=== PATIENT | female | born 1960 | race Caucasian/White ===

== ENCOUNTER 2020-02-01 05:30 | Observation (INO) ==
--- NOTE | 2020-01-17 09:05 | PAT Medication Instructions ---
Medication Instructions Date of Service January 17, 2020 Home Medications black cohosh 540 mg PO BID melatonin 10 mg PO HS STOP taking 2 weeks before surgery (or as soon as possible if surgery is within 2 weeks) black cohosh 540 mg PO BID Take evening before surgery melatonin 10 mg PO HS Other Notes If you have any questions please call us at [phone] or [phone] or [phone] or [phone]
--- NOTE | 2020-01-18 08:46 | Anesthesiology Consultation ---
Date of Service January 18, 2020 Assessment & Plan (1) Encounter for pre-operative examination: Chart Review Chart Review: Acceptable Risk for Surgery and Patient seen in Pre Admission Testing Seen by cardio 01/14/20 for pre op evaluation = History of bradycardia after cataract surgery in 2018 (no strips available for review). Did have w/u with [facility]- showed episodes of SVT (longest lasting 9 beats) and 1 episode of NSVT. No pauses or AV block noted. Exercise ECHO negative for ischemia. " Patient easily gets between 4-10 METS without symptoms of chest pain/dyspnea/syncope. No further cardiac work-up is needed. Would recommend close hemodynamic monitoring intraoperatively and postoperatively actively to monitor for any significant bradycardia/arrhythmias. Today resting heart rate is in the 50s, I had patient walk a short distance and there was an appropriate increase to 75 bpm" *Anesthesia record from 09/01/18 cataract surgery in [facility] [address] included. No mention of bradycardia noted. As above, pt had subsequent work up that was unremarkable and follows routinely with cardio. Teaching & Discussion Pre-Anesthesia Teaching/Discussion Notes: Instructed NPO after midnight before surgery,except medications with 15 cc of water. Medication instructions provided according to the PAT guidelines. History Surgery Operation Date: 02/01/20 07:15 Proposed Procedures p Left Superficial Parotidectomy - Dayton Paulson MD Height/Weight Height: 5 ft 11 in Weight: 92.7 kg Allergies Allergy/AdvReac Type Severity Reaction Status Date / Time No Known Drug Allergies Allergy Verified 01/12/20 11:41 Medications Home Medications Medication Instructions Recorded Confirmed Last Taken black cohosh 540 mg PO BID 01/12/20 01/12/20 Unknown melatonin 10 mg PO HS 01/12/20 01/12/20 Unknown meloxicam 15 mg PO DAILY 01/18/20 01/18/20 Unknown Past Medical History Medical History (Updated 01/19/20 @ 16:26 by Simran Quintana PA-C) Adverse reaction to anesthetic agent Steep drop in heart rate (Aug 2018 for cataract surgery at [facility])- HR in the 20s per patient Arthritis Bradycardia Occasionally- occ dizziness, no syncope Follows with cardio- cardio recommending perioperative and post operative monitoring. No pacer needed at this time History of Lyme disease Per records- 25 years ago- treated with abxs Mass of left parotid gland Stomach ulcer hx- occurred approx 15 years ago- no current issues Exercise / Class Metabolic Activity II 4-5 Yardwork/Stairs/Walk up hill (one flight of stairs - no chest pain and SOB) Past Surgical History Surgical History (Updated 01/12/20 @ 11:47 by Ute Alcala RN) History of appendectomy 1996 History of back surgery L4/L5 ruptured disks, 2007 and 2008 History of bilateral tubal ligation History of cataract surgery R/L removal 08/2018 History of section History of cholecystectomy History of dilatation and curettage History of esophagogastroduodenoscopy (EGD) History of hysterectomy BERTA with unilateral oopherectomy History of removal of cyst From the outer neck area 1967 Past Anesthesia History No Hx of Anesthesia Complications (besides significant bradycardia ) and No Family Hx of Anesthesia Complications History of PONV No Hx of PONV and No Hx of Motion Sickness STOP BANG Total 2 Social History Smoking Status: Former smoker (smoked x 25 years- 3/4 PPD ) tobacco type: cigarettes Do You Dip or Chew Tobacco: No Smoking End Date: ~2009 Hx Alcohol Use: No Hx Substance Use: No substance use type: does not use Review of Systems Reflux - mild and occ- relieved with Tums Patient denies chest pain, shortness of breath, dyspnea on exertion, cough, wheezing, palpitations. No hx of seizures, stroke, MT, apnea/snoring. No hx of blood clots or blood transfusions No recent steroid use Physical Exam Vital Signs VITALS BP119/53 P 54 TEMP 97.6 SP02 97% RESP 18 Constitutional no acute distress ENMT Mouth: no TMJ clicking, no chipped teeth and no loose teeth Thyromental Distance: > or= 3.5 Finger Breadths (3.5) Mallampati Class: II Full upper denture ; missing bottom molars Neck neck extension not limited Respiratory normal respiratory effort; no respiratory distress Auscultation: lungs clear to auscultation bilaterally; no wheezes Cardiovascular Rate/Rhythm: regular rate and regular rhythm Heart Sounds: no murmur Vessels: no carotid bruit Extremities: no edema Musculoskeletal Spine: normal cervical ROM and no pain with cervical ROM Neurologic moves all extremities Psychiatric Orientation: alert Testing Laboratory Results 01/18/20 09:10 01/18/20 09:10 PT 10.6 Seconds (9.0-12.0) 01/18/20 09:10 INR 1.0 (0.9-1.1) 01/18/20 09:10 APTT 28.8 Seconds (21.0-31.0) 01/18/20 09:10 Blood Type O Positive 01/18/20 09:10 Antibody Screen NEGATIVE 01/18/20 09:10 Electrocardiogram Date: 01/14/20 Findings: + SB @ (51) Stress Test Date: 10/16/18 Type: exercise (ECHO) Resting EF: 55-60% Resting LV Function: normal Resting RWMA: + none Valvular Disease: no significant valvular disease Stress ECHO negative for inducible ischemia. MPHR 96%. Frequent PACs and occ PVCs with stress- no sustained arrhythemias. Grade I diastolic dysfunction. Stress EKG showed no evidence of ischemia.
[2020-01-18 10:31] LABS: Basophils # (auto) 0.02 K/uL (0-0.2); Basophils % (auto) 0.3 %; Eosinophils # (auto) 0.26 K/uL (0-0.5); Eosinophils % (auto) 4.2 %; Hematocrit (blood only) 43.5 % (37-47); Hemoglobin 14.2 g/dL (12.0-16.0); Lymphocytes # (auto) 1.79 K/uL (1.2-3.4); Lymphocytes % (auto) 29.2 %; Mean Corpuscular Hemoglobin 31.4 pg (25-34); Mean Corpuscular Hgb Conc 32.6 g/dL (32-36); Mean Corpuscular Volume 96.2 fL (80-100); Mean Platelet Volume 11.4 fL (7.4-10.4); Monocytes # (auto) 0.42 K/uL (0.11-0.59); Monocytes % (auto) 6.9 %; Neutrophils # (auto) 3.64 K/uL (1.4-6.5); Neutrophils % (auto) 59.4 %; Platelet Count 198 K/uL (130-400); RDW Coefficient of Variation 12.8 % (11.5-14.5); RDW Standard Deviation 44.9 fL (36.4-46.3); Red Blood Count 4.52 M/uL (4.2-5.4); White Blood Count 6.13 K/uL (4.8-10.8)
[2020-01-18 10:43] LABS: Partial Thromboplastin Ratio 1.1; Partial Thromboplastin Time 28.8 Seconds (21.0-31.0); Prothrombin Time 10.6 Seconds (9.0-12.0)
[2020-01-18 11:28] LABS: BUN Creatinine Ratio 19.4 (10-20); Calcium 9.5 mg/dl (8.5-10.1); Creatinine Clr Calc Pharmacy 97.5 ml/min; Est GFR (African American) 97.1; Est GFR (Non-African American) 83.8; Potassium 4.3 mmol/L (3.5-5.1)
[2020-02-01] MEDS ORDERED: LR 15ML/HR IV SCH (06:00)
[2020-02-01] MEDS ORDERED: CEFAZOLIN 2000MG 2,000 MG/15 ML SYR IV SCH (06:00)
[2020-02-01] MEDS ORDERED: ACETAMINOPHEN 1000 MG/100 ML IV IV ONE (06:32)
[2020-02-01] MEDS ORDERED: REMIFENTANIL HCL 1 MG VIAL ONE (06:32)
[2020-02-01] MEDS ORDERED: SUCCINYLCHOLINE CHLORIDE 20 MG/ML 10 ML VIAL ONE (06:46)
[2020-02-01] MEDS ORDERED: fentaNYL citrate 100 MCG/2 ML VIAL ONE (06:46)
[2020-02-01] MEDS ORDERED: ONDANSETRON INJ 2 MG/ML 2 ML VIAL ONE (06:46)
[2020-02-01] MEDS ORDERED: PROPOFOL IV EMULSION 10 MG/ML 20 ML VIAL IV ONE (06:46)
[2020-02-01] MEDS ORDERED: DEXAMETHASONE SOD INJ 4 MG/ML VIAL ONE (06:46)
[2020-02-01] MEDS ORDERED: LIDOCAINE HCL 2% 2 ML VIAL/AMP(20MG/ML) INFIL ONE (06:46)
[2020-02-01] MEDS ORDERED: MIDAZOLAM HCL 1 MG/ML 2ML VIAL ONE (06:46)
--- NOTE | 2020-02-01 06:56 | History & Physical Report ---
Date of Service February 01, 2020 Assessment & Plan (1) Mass of left parotid gland: 59yF with L parotid mass, FNA consistent with pleomorphic adenoma. Risks and benefits of parotidectomy discussed - including but not limited to bleeding, infection, hematoma, seroma, facial nerve injury causing temporary or permanent facial paralysis, earlobe numbness, first bite syndrome, Bogdan's syndrome, undesirable cosmetic outcome, need for revision surgery - were discussed and the patient agreed to proceed. Cleared by cardiology at [facility]. Will proceed with surgery today. History of Present Illness Primary Care Provider: Pilo Vázquez 59yF seen in the office for a L parotid mass. FNA showed pleomorphic adenoma. No facial weakness. Not painful or growing signficantly. Allergies Allergy/AdvReac Type Severity Reaction Status Date / Time No Known Drug Allergies Allergy Verified 02/01/20 05:53 Home Medications Home Medications Medication Instructions Recorded Confirmed Type black cohosh 540 mg PO BID 01/12/20 02/01/20 History melatonin 10 mg PO HS 01/12/20 02/01/20 History meloxicam 15 mg PO DAILY 01/18/20 02/01/20 History Past Med/Surg History Medical History (Updated 02/01/20 @ 05:56 by Razia Martinez RN) Adverse reaction to anesthetic agent Steep drop in heart rate (Aug 2018 for cataract surgery at [facility])- HR in the 20s per patient Arthritis Bradycardia Occasionally- occ dizziness, no syncope Follows with cardio- cardio recommending perioperative and post operative monitoring. No pacer needed at this time Eczema (Acute) Eczema of both hands (Acute) History of Lyme disease Per records- 25 years ago- treated with abxs Mass of left parotid gland Stomach ulcer hx- occurred approx 15 years ago- no current issues Surgical History History of appendectomy 1996 History of back surgery L4/L5 ruptured disks, 2007 and 2008 History of bilateral tubal ligation History of cataract surgery R/L removal 08/2018 History of section History of cholecystectomy History of dilatation and curettage History of esophagogastroduodenoscopy (EGD) History of hysterectomy BERTA with unilateral oopherectomy History of removal of cyst From the outer neck area 1968 Social History Preferred Language: Sami Communication Ability: Effective Operations Officer Afloat Required: No Beliefs That Will Affect Care: None Current Living Situation: Spouse and Family current occupational status: employed 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 No overlying skin changes. Normal facial movement bilaterally. Results & Data Vital Signs (Past 12 Hours) Vital Signs Temp Pulse Resp BP Pulse Ox 02/01/20 05:57 36.8 C 63 18 122/69 97 PG Care Time/CCT Total # of Minutes Spent Total Time Spent with Patient: Total time spent is greater than 50% in coordination of care (as documented) at patient's floor/unit and/or counseling patient: Coding Level of Care Code None Diagnoses Mass of left parotid gland K11.8
[2020-02-01] MEDS ORDERED: LIDOCAINE/EPINEPHRINE 1% 20 ML VIAL ONE (07:13)
[2020-02-01] MEDS ORDERED: EPINEPHrine INJ 1 MG/ML AMP ONE (07:13)
[2020-02-01] MEDS ORDERED: BACITRACIN OINT 15 GM TUBE ONE (07:13)
[2020-02-01] MEDS ORDERED: POVIDONE-IODINE OP SOLN 30 ML BTL OP ONE (07:30)
[2020-02-01] MEDS ORDERED: ePHEDrine sulfate 50 MG/ML SYR ONE (08:38)
[2020-02-01] MEDS ORDERED: NALOXONE HCL 0.4 MG/1 ML VIAL/CARP IV PRN (08:52)
[2020-02-01] MEDS ORDERED: LABETALOL HCL IV 5 MG/ML 20ML IV PRN (08:52)
[2020-02-01] MEDS ORDERED: ONDANSETRON INJ 2 MG/ML 2 ML VIAL IV PRN ×2 (08:52→11:50)
[2020-02-01] MEDS ORDERED: HYDROmorphone INJ 1 MG/ML SYRINGE IV PRN (08:52)
[2020-02-01] MEDS ORDERED: PROMETHAZINE HCL 12.5 MG in SODIUM CHLORIDE 0.9% 50 ML IV PRN (08:52)
[2020-02-01] MEDS ORDERED: FLUMAZENIL 0.1 MG/1 ML 10 ML VIAL IV PRN (08:52)
[2020-02-01] MEDS ORDERED: ePHEDrine sulfate 50 MG/ML AMP IV PRN (08:52)
[2020-02-01] MEDS ORDERED: ATROPINE SULFATE 0.1 MG/ML 10ML SYR IV PRN (08:52)
[2020-02-01] MEDS ORDERED: CLINDAMYCIN PHOS 300 MG/2 ML VIAL ONE (10:54)
[2020-02-01] MEDS ORDERED: CEFAZOLIN 250 MG/ML 1 GM VIAL ONE (11:15)
--- NOTE | 2020-02-01 11:50 | Post Operative Brief Note ---
PG Immediate Post Op with CF Date of Surgery February 01, 2020 Pre & Post Diagnosis Operation Date: 02/01/20 07:15 Pre-Op Diagnosis: Mass of Left Parotid Gland Post-Op Diagnosis: Mass of Left Parotid Gland I identified the patient and participated in the time-out.: Yes Procedure Operation Date: 02/01/20 07:15 Actual Procedures p Left Superficial Parotidectomy(Left) - Dayton Paulson MD Surgeon Dayton Paulson MD Cardiac Monitor Dean Aguiar MD Estimated Blood Loss 25 Findings See Below Approx 2cm mass L superficial parotid. FN identified at main trunk, dissected, preserved. All branches stimulated at end of case. KHALIDA x1 Specimens Specimen Description: A. Left Superficial Parotid Drains Chuy-Tripathi Drain (10 fr Flat)
[2020-02-01] MEDS: fentaNYL citrate 100 MCG/2 ML VIAL IV PRN ×4 (12:12→12:27)
--- NOTE | 2020-02-01 13:14 | Anesthesiology Progress Note ---
Date of Service February 01, 2020 Anesthesia Post Procedure Vital Signs Vital Signs: Temp Pulse Pulse Resp BP BP Pulse Ox 02/01/20 13:05 69 13 110/50 L 98 02/01/20 12:55 77 21 115/58 L 98 02/01/20 12:45 95 H 17 110/63 98 02/01/20 12:35 95 H 21 109/53 L 98 02/01/20 12:28 90 20 113/61 97 02/01/20 12:15 100 H 20 115/63 99 02/01/20 12:05 102 H 15 115/54 L 99 02/01/20 11:59 37.4 C 106 H 16 123/72 98 02/01/20 05:57 36.8 C 63 18 122/69 97 Pain Intensity Left Neck: Pain Intensity: 3 Transfer of Care Handoff Completed per policy Notes Mental Status: alert / awake / arousable Patient Amnestic to Procedure: Yes Nausea / Vomiting: adequately controlled Pain: adequately controlled Airway Patency, RR, SpO2: stable & adequate BP & HR: stable & adequate Hydration State: stable & adequate Anesthetic Complications: no major complications apparent
[2020-02-01] MEDS: ARTIFICIAL TEARS OPL SCH ×5 (14:36→21:22)
[2020-02-01] MEDS: dexAMETHasone 8 MG in SYRINGE 0 ML IV SCH ×2 (14:37→20:41)
[2020-02-01] MEDS: ACETAMINOPHEN 325 MG TAB PO PRN ×2 (14:40→20:48)
[2020-02-01] MEDS: OXYCODONE HCL IR 5 MG TAB (IMMEDIATE RELEASE) PO PRN (16:48)
--- NOTE | 2020-02-01 17:10 | Operative Report (OR) ---
DATE OF OPERATION: 02/01/2020 PREOPERATIVE DIAGNOSIS: Left parotid mass. POSTOPERATIVE DIAGNOSIS: Left parotid mass. PROCEDURE: Left superficial parotidectomy with facial nerve dissection and intraoperative facial nerve monitoring. ANESTHESIA: General orotracheal. SURGEON: Dr. Dayton Paulson. VP ORGANIZATIONAL DEVELOPMENT: Dr. Dean Aguiar ESTIMATED BLOOD LOSS: 25 mL. SPECIMENS: Left parotid mass. DRAINS: 10-Sami KHALIDA drain x1 FINDINGS: Approximately 2 cm smooth, lobulated left superficial parotid mass. COMPLICATIONS: None. INDICATIONS FOR THE PROCEDURE: The patient is a 59-year-old female seen in the office for an incidentally noted left parotid mass. An ultrasound of the neck revealed a lobulated heterogeneous 2.1 cm superficial parotid mass. FNA of the mass was consistent with a pleomorphic adenoma. Given the risk of malignant transformation, it was recommended that the patient undergo a left superficial parotidectomy with facial nerve dissection and intraoperative facial nerve monitoring. The risks and the benefits of the procedure were discussed in detail and the patient elected to proceed with surgery. Informed consent was obtained. DETAILS OF PROCEDURE: The patient was identified in the preoperative holding area and brought back to the operating room. She was placed supine on the operating room table. After the successful induction of general orotracheal anesthesia, the head of the bed was turned 90 degrees. A shoulder roll was placed. Facial nerve monitoring leads were placed by neurophysiology. The patient was prepped with ophthalmic betadine and draped in the usual sterile fashion for a left parotidectomy with facial nerve dissection. A surgical timeout was performed. A modified Jamey incision was marked beginning in the left preauricular crease and coursing behind the left ear lobule into a skin crease 2 fingerbreadths below the angle of the mandible. Approximately 5 mL of 1% lidocaine with 1:100,000 epinephrine was then infiltrated along the planned incision line. The entirety of the left side of the face was draped into the sterile field. A 15 blade was used to make a modified Jamey incision, which was carried down to the level of the tragal cartilage anterior to the auricle and the sternocleidomastoid muscle in the neck. The preparotid fascia was identified and supraparotid flap was raised, taking care to avoid violation of the parotid capsule and the parotid lesion itself. Care was taken to preserve adequate thickness of the skin flap to avoid Bogdan syndrome. The pretragal plane was then developed using a combination of sharp and blunt dissection. The plane was developed to expose the tragal pointer, which was identified and preserved. The parotid tissue was then grasped with Allis clamps and retracted anteriorly. The posterior aspect of the gland was freed from the underlying sternocleidomastoid muscle. The posterior belly of the digastric muscle was identified beneath the sternocleidomastoid muscle fascia and traced posteriorly towards the mastoid tip. The intervening tissue spanning the 2 landmarks were then carefully dissected until the facial nerve was identified in its usual location. Nerve stimulation at 0.5mAmps was used to confirm function of the nerve, with good response in all branches. The facial nerve was then dissected out to the pes anserinus where the superior and inferior divisions were identified. The mass was identified between the inferior and superior divisions. The facial nerve branches around the tumor were dissected out past the mass so that the tumor could be peeled away from the facial nerve. The tumor unfortunately was located just superficial to the zygomatic branch, but was gently peeled off the facial nerve branch. In this fashion, the mass was completely removed with a cuff of normal-appearing parotid tissue on all sides with grossly negative margins. The mass was then passed off the table and sent for permanent pathology. The main trunk of the facial nerve was then stimulated and caused contraction of all facial muscles supplied by the nerve. Intraoperative nerve monitoring was quiet throughout the case with only minimal baseline activity on mentalis noted at the end of the case. All branches of the facial nerve had good response with stimulation of the main trunk after resection. The wound was then irrigated with sterile saline mixed with clindamycin. Adequate hemostasis was achieved with bipolar cautery. A fully perforated 10-Sami flat KHALIDA drain was then placed in the surgical bed, taking care to avoid placement of the drain overlying the facial nerve itself. The remaining parotid tissue was closed to the sternocleidomastoid muscle fascia to decrease space. The wound was then closed in multilayer fashion using 3-0 Vicryl sutures, 4-0 Monocryl sutures, and a running 5-0 fast gut skin suture. The patient was then turned over to the anesthesia team and extubated without difficulty. She was transferred to the PACU in good condition. I was present for the entire procedure and performed this procedure with the assistance of my partner, Dr. Dean Aguiar. I attest to the content of the Intraoperative Record and any orders documented therein. Any exceptions are noted below. MTDD
[2020-02-01] MEDS ORDERED: ARTIFICIAL TEARS OP OINT 3.5 GM TUBE OPL SCH (21:00)
[2020-02-02] MEDS: ARTIFICIAL TEARS OPL SCH ×5 (00:12→10:14)
[2020-02-02] MEDS: OXYCODONE HCL IR 5 MG TAB (IMMEDIATE RELEASE) PO PRN (00:12)
[2020-02-02] MEDS: dexAMETHasone 8 MG in SYRINGE 0 ML IV SCH (05:29)
[2020-02-02 07:57] VITALS: BP 101/47; TEMP 97.7; O2SAT 98
[2020-02-02 09:20] VITALS: PULSE 52
--- NOTE | 2020-02-02 11:15 | Discharge Summary (DS) ---
ADMISSION DIAGNOSIS: Left parotid mass, status post superficial parotidectomy. DISCHARGE DIAGNOSIS: Same. BRIEF HOSPITAL COURSE: The patient is a 59-year-old female who was noted to have a left parotid mass. Fine needle aspiration showed a pleomorphic adenoma. She presented on 02/01/2020 for a left superficial parotidectomy with facial nerve dissection. The procedure was uncomplicated. She was admitted postoperatively for observation. Given a previous history of severe bradycardia after general anesthesia, it was recommended by her outside parts salesman that she remain on the telemetry unit. She was placed on a surveillance system monitor throughout her hospital stay without any arrhythmia or cardiac issues. Her hospital course was uneventful. There were no postoperative complications. Her pain was controlled with oral medications. She was stable for discharge on postop day 1. On the day of discharge, her pain was controlled with oral medications. She was ambulating and voiding spontaneously. She was tolerating a regular diet. Her KHALIDA drain had borderline output of about 20 mL per shift and the decision was made to discharge the patient with a KHALIDA. She was provided with nursing instruction regarding KHALIDA care including stripping and recording output q. 8 hours. She will follow up in my office in 1 week or sooner if needed for drain removal. PHYSICAL EXAMINATION: On the day of discharge the patient is afebrile with stable vital signs. She is well nourished and well developed and in no acute distress. Her incision site on the left, modified Jamey incision, is intact with Steri-Strips in place. There is no surrounding erythema or evidence of a subcutaneous hematoma. The KHALIDA x1 has serosanguineous output with approximately 20 mL over the last shift. There is full strength of the lower division of her facial nerve. She does have moderate weakness of the upper division of her face - House-Brackman 3/5. She does have complete eye closure on the left. She has full facial nerve function on the right. She has nonlabored respirations without any stridor. PENDING STUDIES AT DISCHARGE: None. DIET: Regular. ACTIVITY RESTRICTIONS: No lifting greater than 10 pounds. BATHING RESTRICTIONS: Okay to shower beginning 02/03/2020. Allow soapy water to run over the incision and pat dry when done. Do not tub bathe or soak incision. DISPOSITION: Home. We did discuss the option of home health care given discharged with a KHALIDA drain, however the patient felt comfortable taking care of the drain herself and declined. DISCHARGE MEDICATIONS: Oxycodone 5mg Q4H prn pain, acetaminophen 650mg Q6h prn pain, lacrilube ointment L eye once daily, artificial tears L eye once daily, resume home meds except black cohosh and mobic. FOLLOWUP: The patient will follow up in my office within 1 week for wound check and KHALIDA removal. We will discuss her pathology at that point. I personally spent 35 minutes discharging this patient. HIEN
== END 2020-02-02 11:51 | disposition home or self-care (01) ==
LOC: ASU 05:30 → 2E 12:08 → INTOOBSV 12:08